=== PATIENT | male | born 1940 | race Caucasian/White ===

== ENCOUNTER → 2019-02-20 | Emergency (ER) | payer OTHER ==
[~2019-02-20] VITALS: Ht 165.1 cm; Wt 67.6 kg
[~2019-02-20] MED LIST: ACCUPRIL40 MG; ANTIVERT25 M1 PO; DICLOFENAC SODI50 MG PO; IBUPROFEN800 MG PO; LOTREL 10-40 M1 EACH; LOTREL 5-20 MG1 CAP; ORPH100T PO; Tylenol Extra Strength 500MG PO; ULTRACET PO
== END | disposition home or self-care (01) ==
LOC: ER 09:18
DX: B34.9 Viral infection, unspecified (principal); R51 Headache

== ENCOUNTER 2020-10-09 09:03 | Emergency (ER) | payer OTHER ==
[~2020-10-09] VITALS: Ht 165.1 cm; Wt 64.9 kg
== END 2020-10-09 14:35 | disposition home or self-care (01) ==
LOC: ER 09:03
DX: L02.511 Cutaneous abscess of right hand (principal)

== ENCOUNTER → 2024-01-11 | Emergency (ER) | payer OTHER ==
[~2024-01-11] VITALS: Ht 165.1 cm; Wt 62.1 kg
== END | disposition left against medical advice (07) ==
LOC: ER 15:18
DX: Z53.21 Procedure and treatment not carried out due to patient leaving prior to being seen by health care provider (principal)

== ENCOUNTER 2024-12-31 17:57 | Emergency (ER) | payer OTHER ==
[~2024-12-31] VITALS: Ht 162.6 cm; Wt 39.0 kg
[2024-12-31] MEDS ORDERED: LABETALOL HCL 200 MG/40 ML VIAL IV ONE (20:00)
[2024-12-31] MEDS ORDERED: 0.9 % SODIUM CHLORIDE 1,000 ML IV ONE (20:00)
[2024-12-31] MEDS ORDERED: FAMOtidine 10 MG/ML (4ML VIAL) IV ONE (20:00)
[2024-12-31] MEDS ORDERED: FAMOTIDINE/PF 20 MG/2 ML VIAL ONE (20:31)
[2024-12-31] MEDS ORDERED: LABETALOL HCL 100 MG/20 ML ML ONE (20:31)
[2024-12-31 20:43] LABS: BASO % 0.6 % (0.1-1.2); EOS # 0.01 (0.04-0.54); EOS % 0.3 % (0.7-7.0); HEMATOCRIT 30.2 % (40.1-51.0); HEMOGLOBIN 9.9 g/dL (13.7-17.5); LYMPH # 1.27 (1.18-3.74); LYMPH % 35.5 % (19.3-53.1); MEAN CORPUSCULAR HEMOGLOBIN 28.9 pg (25.6-32.2); MONO # 0.53 (0.24-0.82); NEUT # 1.37 (1.56-6.13); NEUT % 38.2 % (34.0-71.1); PLATELET COUNT 146 K/uL (163-369); RED BLOOD COUNT 3.42 M/uL (4.63-6.08); RED CELL DISTRIBUTION WIDTH 16.8 % (11.6-14.4)
[2024-12-31 21:00] LABS: INR 1.12; PARTIAL THROMBOPLASTIN TIME 25.4 SECONDS (22.0-34.0); PROTHROMBIN TIME 12.1 SECONDS (9.0-11.5)
[2024-12-31 21:04] LABS: INFLUENZA A AG NEGATIVE (NEGATIVE); INFLUENZA B AG NEGATIVE (NEGATIVE)
[2024-12-31 21:06] LABS: ALBUMIN 1.6 gm/dL (3.4-5.0); BILIRUBIN TOTAL 2.25 mg/dL (0.3-1.2); CALCIUM 9.7 mg/dL (8.5-10.1); CREATININE SERUM 0.73 mg/dL (0.70-1.30); GFR 102.86; GLOBULINA 3.3 G/DL (2.4-3.5); POTASSIUM 4.33 mEq/L (3.5-5.1); TOTAL PROTEIN 4.9 gm/dL (6.4-8.2)
[2024-12-31 21:07] LABS: COVID-19 AG NEGATIVE (NEGATIVE)
[2024-12-31 21:35] LABS: MONO % 14.8 % (4.7-12.5)
== END 2024-12-31 22:08 | disposition home or self-care (01) ==
LOC: ER 18:09
PROVIDERS: General Practice
DX: C85.90 Non-Hodgkin lymphoma, unspecified, unspecified site (principal); E86.0 Dehydration; R05.9 Cough, unspecified; Z20.822 Contact with and (suspected) exposure to COVID-19
CPT/HCPCS: 36415; 71045; 93005; 93041; 96365; 96366; 99283; J3490 ×2; J7030

== ENCOUNTER 2025-01-09 15:19 | Emergency (ER) | payer OTHER ==
[~2025-01-09] VITALS: Ht 162.6 cm; Wt 36.3 kg
[2025-01-09] MEDS ORDERED: 0.9 % SODIUM CHLORIDE 1,000 ML IV STA (17:21)
[2025-01-09 18:02] LABS: ABG PH 7.517 (7.35-7.45); ABG PO2 122.9 mmHg (80-100); BICARBONATE 23.3 mmol/l (23-25)
[2025-01-09 18:45] LABS: ERYTHROCYTE SEDIMENTATION RATE 19 mm/hr (0-20)
[2025-01-09 18:47] LABS: BASO % 0.6 % (0.1-1.2); EOS # 0.06 (0.04-0.54); EOS % 0.4 % (0.7-7.0); LYMPH # 2.86 (1.18-3.74); LYMPH % 20.2 % (19.3-53.1); MEAN PLATELET VOLUME 10.30 fl (9.4-12.4); MONO # 0.61 (0.24-0.82); MONO % 4.3 % (4.7-12.5); NEUT # 10.42 (1.56-6.13); NEUT % 73.4 % (34.0-71.1); RED CELL DISTRIBUTION WIDTH 17.7 % (11.6-14.4)
[2025-01-09 18:47] LABS: o2 21 %
[2025-01-09 18:59] LABS: INR 1.06
[2025-01-09 19:06] LABS: ALT/SGPT 29.0 U/L (12-78); AST/SGOT 27.0 U/L (15-37); BILIRUBIN TOTAL 1.71 mg/dL (0.3-1.2); BILIRUBIN,CONJUGATED 1.0 mg/dL (0.0-0.2); BUN CREA RATIO 35.0 (7.0-25.0); CREATININE SERUM 0.54 mg/dL (0.70-1.30); GFR 145.66; GLOBULINA 3.4 G/DL (2.4-3.5); GLUCOSE FASTING 161.0 mg/dL (65-100); OSMOLALITY SERUM 285.0 MOSM/KG (275-295)
[2025-01-09 19:20] LABS: COVID-19 AG NEGATIVE (NEGATIVE)
[2025-01-09 21:01] LABS: URINE APPEARANCE Turbid; URINE BILIRRUBIN Moderate (NEGATIVE); URINE BLOOD Negative; URINE COLOR Dark Yellow; URINE GLUCOSE Negative (NEGATIVE); URINE KETONE Negative (NEGATIVE); URINE LEUKOCYTE Small; URINE NITRATE Negative; URINE PROTEIN Trace (NEGATIVE); URINE UROBILINOGEN 2.0 E.U./dl
[2025-01-09 21:05] LABS: URINE BACTERIA 44.4 uL (0.0-1933); URINE CAST 16.16 uL (0.0-1.40); URINE EPITHELIAL CELLS 9.2 uL (0.0-38.8); URINE RBC 196.7 uL (0.0-20.8); URINE WBC 15.2 uL (0.0-23.2)
[2025-01-09 21:26] LABS: URINE CRYSTALS MANY /HPF; URINE MUCUS HEAVY; URINE YEAST NEGATIVE /hpf
[2025-01-10] MEDS ORDERED: CEFTRIAXONE SODIUM 1,000 MG VIAL IV ONE (09:00)
[2025-01-10] MEDS ORDERED: 0.9 % SODIUM CHLORIDE 1,000 ML IV ONE (17:15)
[2025-01-10] MEDS ORDERED: FAMOtidine 10 MG/ML (4ML VIAL) IV ONE (17:15)
[2025-01-10] MEDS ORDERED: PIPERACILLIN/TAZOBACTAM SODIUM 3.375 GM VIAL IV ONE (17:15)
[2025-01-10] MEDS ORDERED: LEVALBUTEROL HCL 1.25 MG/3 ML SOLUTION IH ONE (17:15)
== END 2025-01-10 19:12 | disposition home or self-care (01) ==
LOC: ER 15:19
DX: K60.30 Anal fistula, unspecified (principal); C80.0 Disseminated malignant neoplasm, unspecified; E86.0 Dehydration; J90 Pleural effusion, not elsewhere classified; Z20.822 Contact with and (suspected) exposure to COVID-19
CPT/HCPCS: 36415; 71045; 71260; 74177; 82803; 94640; 96365; 96366; 99285; J0696; J2543; J3490; J7030; Q9965